=== PATIENT | female | born 1985 | race Hispanic/Latino ===

== ENCOUNTER 2023-05-30 15:52 | Emergency (ER) | payer OTHER, SELFPAY ==
[2023-05-30 15:54] VITALS: BP 116/73
--- NOTE | 2023-05-30 16:45 | ED.GENMED ---
History of Present Illness
General
Chief Complaint: Cold/Flu/URI Symptoms
Time Seen by Provider: 05/30/23 16:02
Travel History
Have you had any contact with someone who has COVID-19?: Yes
Comment: COVID +
Do you have any symptoms of coronavirus? Fever > 100 degrees, chills, cough, shortness of breath, sore throat, loss of taste or smell, muscle aches, or headache?: Yes
Symptoms:: COVID +
History of Present Illness
History of Present Illness:
37-year-old female presents the emergency department for evaluation of intermittent shortness of breath and general fatigue as well as headache beginning last night. She tested positive for COVID this morning. Reports her primary concern is for
significant headache. Denies any vision changes, chest pain, nausea, or vomiting
Review of Systems
Review of Systems
Allergies reviewed?: Yes
All Other Systems: ROS reviewed and negative except as documented in HPI and ROS
Phy Exam
Physical Exam
Physical Exam:
GEN: Well appearing, NAD, WDWN
HEENT: Oral mucosa moist, no scleral icterus
Cardiac: Regular rate and rhythm, no murmurs
Lung: No respiratory distress, no tachypnea, lungs clear to auscultation bilaterally
MSK: No gross deformity or injuries
Skin: Good color, no pallor or jaundice, no rashes
Neuro: AO x3, moves all extremities freely
Psych: Calm, cooperative
Course
Orders/Labs/Results
Orders:
Orders
05/30/23 16:44
Acetaminophen [Tylenol] 1,000 mg PO NOW STA
Ketorolac [Toradol] 30 mg IM NOW STA
Vital Signs
Initial and Last Documented VS:
Initial Vital Signs
Temp Pulse Resp BP Pulse Ox
99.2 F 83 18 116/73 99
05/30/23 15:54 05/30/23 15:54 05/30/23 15:54 02/04/24 15:54 05/30/23 15:54
Last Documented Vital Signs
Temp Pulse Resp BP Pulse Ox
99.2 F 83 18 116/73 99
05/30/23 15:54 05/30/23 15:54 05/30/23 15:54 05/30/23 15:54 05/30/23 15:54
MDM/Problems Addressed
MDM/Problems Addressed:
Patient's vitals are normal. Lungs are clear. Treat supportively for headache, discussed supportive care for COVID, no indication for antivirals
*Critical Care Note
Total Time (30-74mins, 75-104mins- exclusive of procedures): Not Applicable
ED Attending Note
-
Portions of this chart may have been created with voice recognition software.� Occasional wrong word or��sound alike� substitutions may have occurred due to the inherent limitations of voice recognition software.
Discharge Plan
Departure
Patient Disposition: Home (Routine Discharge)
Date of Disposition: 05/30/23
Time of Disposition: 17:03
Patient with high blood pressure during this ER visit?: No
Discharge Problem:
COVID-19
Instructions: COVID-19 (DC)
Prescriptions:
New
diclofenac sodium 75 mg tablet,delayed release (DR/EC)
75 mg PO BID PRN (Reason: Pain) Qty: 10 0RF
Referrals:
Araseli Oquendo MD [Family Provider] -
Interventions
Interventions:
*Risk Screen - Suicide Last Done: 05/30/23 18:00
*General Assessment Last Done: 05/30/23 15:54
*Neglect/Abuse Screening Last Done: 05/30/23 18:00
ED- Fall Risk Assessment Last Done: 05/30/23 18:01
*ED COVID-19 Vaccine History Last Done: 05/30/23 15:54
*Nursing Disposition Last Done: 05/30/23 18:03
ED- Pulmonary Assessment Last Done: 05/30/23 18:02
Discharge Date and Time
Discharge Date/Time: 05/30/23 18:04
[2023-05-30] MEDS: TORADOL 30 MG IM (17:45)
[2023-05-30] MEDS: TYLENOL 1000 MG PO (17:45)
== END 2023-05-30 18:04 | disposition home or self-care (01) ==
LOC: EMR 15:52
PROVIDERS: EMERGENCY PHYSICIAN Emergency Medicine; FAMILY PHYSICIAN Internal Medicine
DX: U07.1 COVID-19 (principal)
CPT/HCPCS: 99282; 96372